=== PATIENT | female | born 1960 | race Caucasian/White ===

== ENCOUNTER → 2016-08-07 | Outpatient (REF) ==
[~2016-08-07] MED LIST: CLIMARA 0.1 PATCH.WK TD; COZAAR 25MG25 MG/TAB PO; PRIL40 PO; TYLENOL 8 HR PO
== END ==
LOC: ZMSC 11:56
DX: Z01.89 Encounter for other specified special examinations (principal)

== ENCOUNTER → 2016-10-01 | Outpatient (CLI) | payer BC | LOC: COL.RAD 12:02 | DX: Z01.818 Encounter for other preprocedural examination (principal); K21.9 Gastro-esophageal reflux disease without esophagitis; Z98.890 Other specified postprocedural states ==

== ENCOUNTER 2016-10-07 08:52 | Observation (INO) | payer BC ==
[~2016-10-07] VITALS: Ht 172.7 cm; Wt 95.1 kg
[2016-10-07] VITALS (9 sets, daily range): BP systolic 114–140; BP diastolic 64–96; PULSE 72–81; TEMP 97.7–98.3
[2016-10-07] MEDS ORDERED: COZAAR 25MG25 MG/TAB PO (09:21)
[2016-10-07] MEDS ORDERED: PRIL40 PO (09:22)
[2016-10-07] MEDS ORDERED: CLIMARA 0.1 PATCH.WK TD (09:23)
[2016-10-07] MEDS ORDERED: TYLENOL 8 HR PO (09:23)
[2016-10-08 02:03] VITALS: BP 121/76; PULSE 81; TEMP 98.5
[2016-10-08 05:18] VITALS: BP 147/87; PULSE 85; TEMP 98.5
[2016-10-08 07:52] LABS: HEMATOCRIT 34.5 % (37.0-47.0); HEMOGLOBIN 11.1 g/dl (12.5-16.0); MEAN CELL VOLUME 87 fl (80.0-100.0); MEAN CORPUSCULAR HEMOGLOBIN 28 pg (27.0-31.0); MEAN CORPUSCULAR HGB CONC 32 g/dl (33.0-37.0); MEAN PLATELET VOLUME 10.4 fl (7.4-10.4); PLATELET COUNT 302 K/mm3 (130-400); RED BLOOD COUNT 3.96 M/mm3 (4.10-5.30); REDCELL DISTRIBUTION WIDTH-CV 13.2 % (11.5-14.5); WHITE BLOOD COUNT 8.2 K/mm3 (4.8-10.8)
[2016-10-08 08:12] LABS: CALCIUM 8.3 mg/dL (8.4-10.2); CREATININE, serum 0.74 mg/dL (0.52-1.25); POTASSIUM 3.4 mmol/L (3.4-5.0)
[2016-10-08 09:31] VITALS: BP 118/73; PULSE 71; TEMP 98.6
[2016-10-08 13:12] VITALS: BP 126/78; PULSE 78; TEMP 98
[2016-10-08 17:35] VITALS: BP 130/80; PULSE 70; TEMP 87.6
[2016-10-08 21:16] VITALS: BP 108/58; PULSE 69; TEMP 99
[2016-10-09 05:11] VITALS: BP 119/78; PULSE 77; TEMP 99.5
[2016-10-09 09:26] VITALS: BP 127/70; PULSE 83; TEMP 98.5
== END 2016-10-09 12:34 | disposition home or self-care (01) ==
LOC: SDCO 08:52 → JCC 08:52 → SDCO 11:00 → JCC 17:24 → SDCO 10-08 16:15 → JCC 10-08 16:15
PROVIDERS: Surgery
DX: K95.89 Other complications of other bariatric procedure (principal); K21.9 Gastro-esophageal reflux disease without esophagitis; K44.9 Diaphragmatic hernia without obstruction or gangrene; I10 Essential (primary) hypertension; Z90.710 Acquired absence of both cervix and uterus; Z90.722 Acquired absence of ovaries, bilateral; Z90.49 Acquired absence of other specified parts of digestive tract; Z81.8 Family history of other mental and behavioral disorders; Z82.49 Family history of ischemic heart disease and other diseases of the circulatory system
CPT/HCPCS: OP; A9284; C1713; C1781; G0378; J1170; J1885; J1956; J2250; J2405; J2704; J3010; J7042

== ENCOUNTER 2022-06-05 08:19 | Day surgery (SDC) | payer BC ==
[~2022-06-05] VITALS: Ht 172.7 cm; Wt 86.4 kg
[~2022-06-05 08:19] MED LIST changes: +EXCEDRIN TENSIO1 CAP PO; +MOTRIN 200200 MG/TAB PO; +OCUVITE1 TA1 PO; +PROTONIX20 MG PO; +TYLENOL 500MG500 MG PO; +VITAMIND3 5000 PO; +ZANTAC-360 (FAM20 MG PO; +ZOFRAN ODT4 MG PO; +ZOLOFT 25MG25 MG PO
--- NOTE | 2022-06-05 09:18 | NUR ---
Patient's BP preop is 186/109 and 170/107. SHe does not take any BP medications at home. This is reported to Mamadou Stack CRNA and he orders a one time dose of 10 mg IV Labetolol preop.
[2022-06-05 09:20] VITALS: BP 186/109; PULSE 74; TEMP 98.2
--- NOTE | 2022-06-05 09:45 | NUR ---
BP is now 164/100 after labetolol dose. RN for procedure is notified.
[2022-06-05 10:25] VITALS: BP 164/100; PULSE 65; TEMP 98.2
--- NOTE | 2022-06-05 10:25 | NUR ---
1025 PATIENT RETURNS TO ROOM 2 VIA CART. PATIENT IS ALERT AND ORIENTED. PATIENT IS IN ROOM. PATIENT AMBULATES TO RECLINER WITH THE ASSISTANCE OF 2 NURSES. RESPIRATIONS EVEN AND UNLABORED. VITAL SIGNS OBTAINED. PATIENT REQUESTED AN APPLE JUICE, NO DIFFICULTIES SWALLOWING. 1040 DOCTOR IN TO SPEAK WITH PATIENT. 1045 DISCHARGE INSTRUCTIONS REVIEWED WITH PATIENT AND PATIENT . BOTH VERBALIZED UNDERSTANDING. 1050 DISCONTINUED IV FROM RIGHT HAND WITH NO DIFFICULTIES. 1055 PATIENT DISCHARGED FROM UNIT VIA WHEELCHAIR IN STABLE CONDITION TO PERSONAL CAR.
[2022-06-05 10:40] VITALS: BP 152/102; PULSE 68
[2022-06-05 10:55] VITALS: BP 148/101; PULSE 61
== END 2022-06-05 10:55 | disposition home or self-care (01) ==
LOC: SDCO 08:19
DX: K22.2 Esophageal obstruction (principal); K22.70 Barrett's esophagus without dysplasia; K21.9 Gastro-esophageal reflux disease without esophagitis
CPT/HCPCS: C1726; J2704; J7120